=== PATIENT | male | born 1935 | race Caucasian/White ===

== ENCOUNTER 2019-04-09 20:16 | Inpatient (IN) ==
--- NOTE | 2019-04-09 21:03 | Emergency Department Note ---
Abdominal Pain HPI - General Chief Complaint: Abdominal Pain Stated Complaint: Right side abdominal pain Time Seen by Provider: 04/09/19 20:21 - History of Present Illness HPI Narrative: 83-year-old male patient presents emergency Department with chief complaint of worsening chest and abdominal pain 2.5 days. Patient tells the pain spontaneously developed in the right side of his chest and radiates down into his abdomen. He denies systemic fever, sweats, chills. He denies shortness of breath. He denies retrosternal chest pain or palpitations. He describes the pain to his abdomen as an achiness that travels from his back, around his right flank, and into his abdomen. He denies any nausea or vomiting. He admits to chronic diarrhea over the last 4 years. He admits to an extensive intra- abdominal surgical history with removal of a significant portion of his small bowel associated with diverticulitis. He and his both tell me that he spent over a month and a hospital recovering from various intra-abdominal infections and sequelae associated with the surgery. He denies generalized or focal weakness. Past history consists of the following: Hypertension, hyperlipidemia, iron deficiency, hypothyroidism. - Related Data Home Medications Medication Instructions Recorded Confirmed Aspirin [Adult Low Dose Aspirin EC] 81 mg PO HS 04/09/19 04/09/19 Atorvastatin [Lipitor] 10 mg PO DAILY 04/09/19 04/09/19 Folic Acid 0.8 mg PO HS 04/09/19 04/09/19 Irbesartan [Avapro] 300 mg PO DAILY 04/09/19 04/09/19 Iron 65 mg PO DAILY 04/09/19 04/09/19 Levothyroxine [Synthroid] 137 mcg PO DAILY 04/09/19 04/09/19 Magnesium Oxide [Magnesium] 500 mg PO HS 04/09/19 04/09/19 amLODIPine [Norvasc] 10 mg PO HS 04/09/19 04/09/19 traZODone HCL [Trazodone HCl] 100 mg PO HS 04/09/19 04/09/19 Allergies Allergy/AdvReac Type Severity Reaction Status Date / Time No Known Drug Allergies Allergy Verified 04/09/19 20:22 Review of Systems All systems ED: reviewed and negative except as stated. Abdominal Pain PMH - Social History Smoking status: Former smoker Physical Exam General appearance: alert, in no apparent distress Head: atraumatic, normocephalic Eye: Present: normal appearance, PERRL, EOMI. Absent: scleral icterus, conjunctival injection ENT: Present: normal oropharynx, mucous membranes moist Neck: Present: trachea midline. Absent: lymphadenopathy, thyromegaly Chest: Present: normal inspection, symmetric chest wall rise. Absent: tenderness, rash Respiratory: Present: normal lung sounds bilaterally. Absent: respiratory distr ess, wheezes, stridor, accessory muscle use, prolonged expiratory phase Cardiovascular: Present: regular rate, normal rhythm, other (auscultation demonstrates slightly irregular rhythm.). Absent: systolic murmur, diastolic murmur Abdominal: Present: soft, tenderness, hyperactive bowel sounds, scar (well- healed, midline surgical scar.). Absent: distention, guarding, rebound, rigidity, organomegaly, mass Abdominal tenderness: Present: RUQ, mild Extremities: Absent: pedal edema, pretibial edema, calf tenderness Back: Absent: CVA tenderness (R), CVA tenderness (L), spinous process tenderness Neurological: Present: alert, oriented X3 Psychiatric: Present: normal affect, normal mood Skin: Present: warm, dry Course Course Narrative: Patient is brought into the emergency department and a history and physical exam was performed. Saline lock was established and laboratory studies were drawn. Two-view chest x-ray was obtained. Abdominal/pelvic CT scan was obtained. Upon reevaluation patient is resting comfortably on the emergency room guarding. At shift change I gave report to my collaborating physician (Dr. Crow). He is taken over the patient's care and will follow him for the duration of his stay. All future treatment decisions and modalities be carried out by Dr. Crow. Vital Signs Temperature 98.1 F 04/09/19 20:17 Pulse Rate 60 04/09/19 20:17 Respiratory Rate 16 04/09/19 20:17 Blood Pressure 183/89 04/09/19 20:17 Pulse Oximetry (%) 97 04/09/19 20:17 Temperature 98.1 F 04/09/19 20:17 Pulse Rate 60 04/09/19 20:17 Respiratory Rate 16 04/09/19 20:17 Blood Pressure 183/89 04/09/19 20:17 Pulse Oximetry (%) 97 04/09/19 20:17 Abdominal Pain - Lab Data Result diagrams: 04/09/19 21:32 04/09/19 21:20 Lab Results 04/09/19 Range/Units 21:20 POC Hct 44.0 (41.0-55.0) % POC Sodium 138 (133-145) mmol/L POC Potassium 3.2 L (3.3-5.1) mmol/L POC Chloride 103 (96-108) mmol/L POC Total CO2 24 (22-30) mmol/L POC BUN 17 (8-23) mg/dl POC Creatinine 1.6 H (0.7-1.2) mg/dl POC Glucose 152 H (70-105) mg/dL POC WB Ioniz Calcium 1.19 (1.16-1.32) mmol/L Disposition Pt seen by RETIREMENT OFFICER/PA only: No (Tristin) Clinical Impression: Abdominal pain Qualifiers: Abdominal location: unspecified location Qualified Code(s): R10.9 - Unspecified abdominal pain Disposition: Still a Patient Condition: Fair Additional Instructions: At shift change report was given to my collaborating physician (Dr. Crow) who has assumed the patient's care. All future treatment decisions and modalities will be carried out by Dr. Crow. Referrals: Neal Diaz DO [Primary Care Provider] -
[2019-04-09 21:37] LABS: POC Blood Urea Nitrogen 17 mg/dl (8-23); POC CO2 24 mmol/L (22-30); POC Calcium, Ionized 1.19 mmol/L (1.16-1.32); POC Chloride 103 mmol/L (96-108); POC Creatinine 1.6 mg/dl (0.7-1.2); POC Glucose, Random 152 mg/dL (70-105); POC Potassium 3.2 mmol/L (3.3-5.1); POC Sodium 138 mmol/L (133-145)
[2019-04-09 22:24] LABS: ALT/SGPT 14 U/l (0-40); AST/SGOT 22 U/l (0-37); Albumin 4.6 gm/dL (3.2-5.2); Albumin/Globulin Ratio 1.4 (1.0-2.3); Alkaline Phosphatase 164 U/L (39-117); Bilirubin,Total 0.7 mg/dL (0.0-1.0); Blood Urea Nitrogen 14 mg/dl (8-23); Calcium 10.7 mg/dl (8.6-10.4); Carbon Dioxide 21 mmol/L (22-30); Chloride 100 mmol/L (96-108); Globulin 3.4 gm/dL (2.2-3.7); Glomerular Filtration Rate 40; Glucose 149 mg/dL (70-105)
[2019-04-09 22:46] LABS: Appearance,Urine CLEAR; Bacteria,Urine 0 /hpf (0); Bilirubin,Urine NEG (NEG); Color,Urine STRAW; Culture Indicated,Urine YES; Glucose,Urine (UA) NEGATIVE (NEG); Ketones,Urine NEG (NEG); Leukocyte Esterase,Urine 500 /uL (NEG); Mucus,Urine FEW /hpf (0); Nitrate,Urine NEG (NEG); Protein,Urine 30 mg/dL (NEG); Specific Gravity,Urine 1.008 (1.000-1.035); Urine Blood 0.03 mg/dL (<0.03); Urine RBC 3 /hpf (0-1); Urine Squamous Epithelial Cell 0 /hpf (0-4); Urine WBC 65 /hpf (0-4); Urobilinogen,Urine NEG (NEG)
[2019-04-09 22:46] LABS: Basophils # (Auto) 0 K/mcL (0.0-0.3); Basophils % (Auto) 0.2 % (0.0-2.0); Eosinophils # (Auto) 0.2 K/mcL (0.0-0.7); Eosinophils % (Auto) 1.9 % (0.0-7.0); Hematocrit 48.4 % (41.0-55.0); Hemoglobin 16.5 g/dL (13.5-16.5); Lymphocytes # (Auto) 0.7 K/mcL (1.5-4.8); Lymphocytes % (Auto) 5.4 % (15.5-49.0); Mean Cell Volume 93.2 fL (80.0-100.0); Mean Corpuscular HGB Conc 34.2 g/dL (31.0-36.0); Mean Platelet Volume 6.9 fL (7.4-10.4); Monocytes # (Auto) 1.1 K/mcL (0.1-0.9); Monocytes % (Auto) 8.5 % (1.0-12.0); Platelet Count 189 K/mcL (140-440); RBC 5.19 M/mcL (4.50-5.90); Red Cell Distribution Width 13.7 % (11.5-14.5); WBC 12.7 K/mcL (4.5-11.0)
[2019-04-09] MEDS ORDERED: NITROFURANTOIN SR 100 MG CAPSULE PO ONE (23:03)
--- NOTE | 2019-04-09 23:04 | Emergency Department Note ---
Abdominal Pain HPI - General Chief Complaint: Abdominal Pain Stated Complaint: Right side abdominal pain Time Seen by Provider: 04/09/19 20:21 Source: patient Mode of arrival: ambulatory Limitations: no limitations - History of Present Illness HPI Narrative: 83-year-old male with belly pain checked out to me by Jose Manuel Franks PA-C. Patient was initially seen by Jose Manuel Franks PA-C. We discussed his work-up and this was initiated. I reviewed and agree with Jose Manuel' evaluation management documentation - Related Data Home Medications Medication Instructions Recorded Confirmed Aspirin [Adult Low Dose Aspirin EC] 81 mg PO HS 04/09/19 04/10/19 Atorvastatin [Lipitor] 10 mg PO DAILY 04/09/19 04/10/19 Folic Acid 0.8 mg PO HS 04/09/19 04/10/19 Irbesartan [Avapro] 300 mg PO DAILY 04/09/19 04/10/19 Iron 65 mg PO DAILY 04/09/19 04/10/19 Levothyroxine [Synthroid] 137 mcg PO DAILY 04/09/19 04/10/19 Magnesium Oxide [Magnesium] 500 mg PO HS 04/09/19 04/10/19 amLODIPine [Norvasc] 10 mg PO HS 04/09/19 04/10/19 traZODone HCL [Trazodone HCl] 100 mg PO HS 04/09/19 04/10/19 Allergies Allergy/AdvReac Type Severity Reaction Status Date / Time No Known Drug Allergies Allergy Verified 04/09/19 20:22 Abdominal Pain PMH - Social History Smoking status: Former smoker Physical Exam General appearance: alert, in no apparent distress Course Vital Signs Temperature 98.1 F 04/09/19 20:17 Pulse Rate 60 04/09/19 20:17 Respiratory Rate 16 04/09/19 20:17 Blood Pressure 183/89 04/09/19 20:17 Pulse Oximetry (%) 97 04/09/19 20:17 Temperature 98.0 F 04/10/19 04:23 Pulse Rate 101 H 04/10/19 04:23 Respiratory Rate 12 04/10/19 04:23 Blood Pressure 173/94 04/10/19 04:23 Pulse Oximetry (%) 96 04/10/19 04:23 Abdominal Pain - Lab Data Lab results reviewed: Yes I reviewed the patient's lab results. Result diagrams: 04/09/19 22:21 04/09/19 21:20 Lab Results 04/09/19 04/09/19 04/09/19 Range/Units 21:20 21:32 21:52 WBC TNP RBC TNP Hgb TNP Hct TNP POC Hct 44.0 (41.0-55.0) % MCV TNP MCH TNP MCHC TNP RDW TNP Plt Count TNP MPV TNP Gran % (38.0-78.0) % Lymph % (Auto) (15.5-49.0) % [place] % (Auto) (1.0-12.0) % Eos % (Auto) (0.0-7.0) % Baso % (Auto) (0.0-2.0) % Gran # (1.8-8.0) K/mcL Lymph # (Auto) (1.5-4.8) K/mcL [place] # (Auto) (0.1-0.9) K/mcL Eos # (Auto) (0.0-0.7) K/mcL Baso # (Auto) (0.0-0.3) K/mcL POC Sodium 138 (133-145) mmol/L Sodium 137 (133-145) mmol/L POC Potassium 3.2 L (3.3-5.1) mmol/L Potassium 3.3 (3.3-5.1) mmol/L POC Chloride 103 (96-108) mmol/L Chloride 100 (96-108) mmol/L Carbon Dioxide 21 L (22-30) mmol/L POC Total CO2 24 (22-30) mmol/L Anion Gap 16.0 (8-16) POC BUN 17 (8-23) mg/dl BUN 14 (8-23) mg/dl Creatinine 1.6 H (0.7-1.2) mg/dl POC Creatinine 1.6 H (0.7-1.2) mg/dl GFR Calculation 40 Glucose 149 H (70-105) mg/dL POC Glucose 152 H (70-105) mg/dL Calcium 10.7 H (8.6-10.4) mg/dl POC WB Ioniz Calcium 1.19 (1.16-1.32) mmol/L Total Bilirubin 0.7 (0.0-1.0) mg/dL AST 22 (0-37) U/l ALT 14 (0-40) U/l Alkaline Phosphatase 164 H (39-117) U/L Total Protein 8.0 (5.9-8.4) gm/dL Albumin 4.6 (3.2-5.2) gm/dL Globulin 3.4 (2.2-3.7) gm/dL Albumin/Globulin Ratio 1.4 (1.0-2.3) Lipase 25 (7-60) U/L Urine Color Straw Urine Appearance Clear Urine pH 7.0 (5.0-9.0) Ur Specific [place] 1.008 (1.000-1.035) Urine Protein 30 A (NEG) mg/dL Urine Glucose (UA) Negative (NEG) mg/dL Urine Ketones Neg (NEG) mg/dL Urine Occult Blood 0.03 A (<0.03) mg/dL Urine Nitrate Neg (NEG) Urine Bilirubin Neg (NEG) mg/dL Urine Urobilinogen Neg (NEG) mg/dL Ur Leukocyte Esterase 500 A (NEG) /uL Urine RBC 3 H (0-1) /hpf Urine WBC 65 H (0-4) /hpf Ur Squamous Epith Cells 0 (0-4) /hpf Urine Bacteria 0 (0) /hpf Urine Mucus Few (0) /hpf Ur Culture Indicated? Yes 04/09/19 Range/Units 22:21 WBC 12.7 H RBC 5.19 Hgb 16.5 Hct 48.4 POC Hct (41.0-55.0) % MCV 93.2 MCH 31.8 MCHC 34.2 RDW 13.7 Plt Count 189 MPV 6.9 L Gran % 84.0 H (38.0-78.0) % Lymph % (Auto) 5.4 L (15.5-49.0) % [place] % (Auto) 8.5 (1.0-12.0) % Eos % (Auto) 1.9 (0.0-7.0) % Baso % (Auto) 0.2 (0.0-2.0) % Gran # 10.7 H (1.8-8.0) K/mcL Lymph # (Auto) 0.7 L (1.5-4.8) K/mcL [place] # (Auto) 1.1 H (0.1-0.9) K/mcL Eos # (Auto) 0.2 (0.0-0.7) K/mcL Baso # (Auto) 0 (0.0-0.3) K/mcL POC Sodium (133-145) mmol/L Sodium (133-145) mmol/L POC Potassium (3.3-5.1) mmol/L Potassium (3.3-5.1) mmol/L POC Chloride (96-108) mmol/L Chloride (96-108) mmol/L Carbon Dioxide (22-30) mmol/L POC Total CO2 (22-30) mmol/L Anion Gap (8-16) POC BUN (8-23) mg/dl BUN (8-23) mg/dl Creatinine (0.7-1.2) mg/dl POC Creatinine (0.7-1.2) mg/dl GFR Calculation Glucose (70-105) mg/dL POC Glucose (70-105) mg/dL Calcium (8.6-10.4) mg/dl POC WB Ioniz Calcium (1.16-1.32) mmol/L Total Bilirubin (0.0-1.0) mg/dL AST (0-37) U/l ALT (0-40) U/l Alkaline Phosphatase (39-117) U/L Total Protein (5.9-8.4) gm/dL Albumin (3.2-5.2) gm/dL Globulin (2.2-3.7) gm/dL Albumin/Globulin Ratio (1.0-2.3) Lipase (7-60) U/L Urine Color Urine Appearance Urine pH (5.0-9.0) Ur Specific [place] (1.000-1.035) Urine Protein (NEG) mg/dL Urine Glucose (UA) (NEG) mg/dL Urine Ketones (NEG) mg/dL Urine Occult Blood (<0.03) mg/dL Urine Nitrate (NEG) Urine Bilirubin (NEG) mg/dL Urine Urobilinogen (NEG) mg/dL Ur Leukocyte Esterase (NEG) /uL Urine RBC (0-1) /hpf Urine WBC (0-4) /hpf Ur Squamous Epith Cells (0-4) /hpf Urine Bacteria (0) /hpf Urine Mucus (0) /hpf Ur Culture Indicated? - Radiology Data Radiology results reviewed: Yes I reviewed the patient's radiology results. Dr. Shields's read on CT scan of the chest abdomen and pelvis without contrast, his creatinine was 1.6: MPRESSION: 1. Cluster of 4-5 calcifications in the region of the distal left ureter spanning 8 by 18 mm. Absence of left hydroureter/hydronephrosis suggests these are merely a collection of phleboliths but there are anatomically difficult to localize on this noncontrast exam. If patient can tolerate iodinated contrast, suggest contrast injection followed by by three standard supine abdomen plain films at one minute, 10 minutes and one hour to determine whether contrast clears through the ureter in this region. (Old standard IVP). 2. Marked prostate enlargement. Mild wall thickening the urinary bladder suggests chronic bladder outlet narrowing. There is an 8 mm stone within the urinary bladder. 3. Marked ileus. 4. 12 mm simple cyst mid left kidney. 5. Bronchiectasis and subsegmental segmental bronchi of both lower lobes which may predispose to future infection. There is scattered scarring or atelectasis in both lower lobes but no active infiltrate. 6. Diminutive thyroid - please correlate with TSH Disposition Pt seen by DIRECTOR OF AGRICULTURE/PA only: No Clinical Impression: Partial small bowel obstruction, Hypercalcemia UTI (urinary tract infection) Qualifiers: Urinary tract infection type: acute cystitis Hematuria presence: with hematuria Qualified Code(s): N30.01 - Acute cystitis with hematuria Summary: When the patient was checked out to me laboratory and CT scan were pending. He is a somewhat difficult phlebotomy and IV challenge but they did manage to get laboratory and start an IV. Laboratory shows a urinary tract infection, and mild hypercalcemia. Is also compatible with partial small bowel obstruction-which is the concern on CT scan. That is ileus versus partial small bowel obstruction. I discussed these things with Dr. Ravi Medeiros, general surgeon, who agreed to accept the patient for further evaluation and management in the hospital. The patient was otherwise stable with mildly elevated blood pressure. He has me to order a small bowel follow-through for the morning which is done. I wrote transition orders Disposition: Xfer As Inpt ([facility]) Condition: Fair
[2019-04-09] MEDS ORDERED: ONDANSETRON 4 MG/2 ML VIAL IV ONE (23:15)
[2019-04-09] MEDS ORDERED: cefTRIAXone 1 GM VIAL IV SCH (23:30)
[2019-04-09] MEDS: HYDROmorphone 2 MG/ML VIAL IV PRN (23:36)
[2019-04-10] MEDS: 0.9 % SODIUM CHLORIDE 1,000 ML IV SCH ×3 (00:36→22:41)
[2019-04-10] MEDS: HYDROmorphone 2 MG/ML VIAL IV PRN ×6 (00:49→23:48)
--- NOTE | 2019-04-10 04:48 | Cat Scan Report ---
CLINICAL INFORMATION: Right-sided chest and abdomen pain for three days. COMPARISON: None. TECHNIQUE: 0.625 mm helical slices were obtained from the lung apices through the subtrochanteric regions of the femurs. Following reconstruction, 2.5 mm sagittal, coronal and axial reformatted images were processed and reviewed at multiple windows and levels. 7 mm MIP reconstructions were obtained through the lungs to optimize nodule detection.The exam was performed using radiation dose optimization techniques including, but not limited to, automated exposure control, adjustment of the mA and/or kV according to patient size and use of iterative reconstruction technique. FINDINGS: Mediastinal windows show mild cardiomegaly with very heavy calcific plaque in the left anterior descending and circumflex coronary arteries. The noncontrast thoracic aorta and pulmonary arteries are normal in contour and caliber. A few calcified lymph nodes in the lower mediastinum is compatible with old granulomatous disease. The esophagus is grossly normal. Thyroid is either quite diminutive or surgically absent. Pulmonary parenchymal windows show scattered scarring and/or atelectasis in both lower lobes. Mild bronchiectasis in the segmental and subsegmental lower lobe bronchi may predispose to future infection. There are no bienvenido infiltrates or effusions. Abdominal images show the noncontrasted liver to be unremarkable. There is a phrygian cap in the gallbladder. Gallbladder is otherwise normal. The common bile duct normal caliber - 6 mm. A 12 mm cyst projects from the lateral cortex of the mid left kidney. 2 mm punctate stone seen within the mid calyx the right kidney. In the distal right ureter region, there is an 18 mm cluster of 4-5 calcifications. It cannot be ascertained whether this is in the ureter itself representing stones or outside the ureter representing phleboliths. There is no evidence of hydronephrosis. The noncontrasted spleen, pancreas and aorta are unremarkable. Pelvic images show moderate prostate enlargement: 7 x 6 x 8 cm. There is mild wall thickening of the urinary bladder compatible with chronic bladder outlet narrowing. 8 mm stone within the urinary bladder. There is no free air, free fluid or adenopathy. The hepatic flexure and a few loops of small bowel are interposed between the anterior surface of the liver and the abdominal wall - a normal variant. The stomach, small and large bowel are symmetrically dilated compatible with moderate ileus. Appendix not identified but no inflammation seen in the appendix region. Bone windows show no significant osseous abnormalities. IMPRESSION: 1. Cluster of 4-5 calcifications in the region of the distal left ureter spanning 8 by 18 mm. Absence of left hydroureter/hydronephrosis suggests these are merely a collection of phleboliths but there are anatomically difficult to localize on this noncontrast exam. If patient can tolerate iodinated contrast, suggest contrast injection followed by by three standard supine abdomen plain films at one minute, 10 minutes and one hour to determine whether contrast clears through the ureter in this region. (Old standard IVP). 2. Marked prostate enlargement. Mild wall thickening the urinary bladder suggests chronic bladder outlet narrowing. There is an 8 mm stone within the urinary bladder. 3. Marked ileus. 4. 12 mm simple cyst mid left kidney. 5. Bronchiectasis and subsegmental segmental bronchi of both lower lobes which may predispose to future infection. There is scattered scarring or atelectasis in both lower lobes but no active infiltrate. 6. Diminutive thyroid - please correlate with TSH Interpreted and Authenticated by: Yony Shields 04/10/19
[2019-04-10] MEDS ORDERED: ONDANSETRON 4 MG/2 ML VIAL IV PRN (17:50)
[2019-04-10] MEDS ORDERED: PROMETHAZINE 25 MG/ML VIAL IV PRN (17:50)
--- NOTE | 2019-04-10 18:00 | General Surg History&Physical ---
History of Present Illness Patient information: Note initiated : 04/10/19 at 5:59 pm Service Date, if different from initiated Date: [] Patient: Jose Mckeon a 83 y/o M admitted on 04/09/19 for Right side abdominal pain. Chief Complaint: [] HPI: Mr. Mckeon is a 83 year old M admitted with abdominal pain. The patient states that he developed abdominal pain in the midabdomen on Sunday. It became progressively worse and he was finally seen in the emergency room late last evening. He did not have nausea or vomiting. He has a history of having had constant diarrhea for many years and usually has bowel movements once or twice daily. He has not had nausea, vomiting and he denies weight loss. He states that he had colonoscopy in 2009. He does not remember the results, but was not scheduled for follow-up. He had small bowel perforation in 2010 and required small bowel resection. He did not have any other symptoms since that surgery. Past History Past surgical history: Small bowel resection 2010. History of cardiac stent Past family history: . Father age 47 due to acute myocardial infarction . Mother in her 70s due to breast cancer metastatic to the brain. He is an only child Past social history: No tobacco use for 30 years. No alcohol use for over 30 years. No drug use. Recent transferred here from [place], [place] Medications and Allergies Home Medications Medication Instructions Recorded Confirmed Type Aspirin [Adult Low Dose Aspirin EC] 81 mg PO HS 04/09/19 04/10/19 History Atorvastatin [Lipitor] 10 mg PO DAILY 04/09/19 04/10/19 History Folic Acid 0.8 mg PO HS 04/09/19 04/10/19 History Irbesartan [Avapro] 300 mg PO DAILY 04/09/19 04/10/19 History Iron 65 mg PO DAILY 04/09/19 04/10/19 History Levothyroxine [Synthroid] 137 mcg PO DAILY 04/09/19 04/10/19 History Magnesium Oxide [Magnesium] 500 mg PO HS 04/09/19 04/10/19 History amLODIPine [Norvasc] 10 mg PO HS 04/09/19 04/10/19 History traZODone HCL [Trazodone HCl] 100 mg PO HS 04/09/19 04/10/19 History Allergies Allergy/AdvReac Type Severity Reaction Status Date / Time No Known Drug Allergies Allergy Verified 04/09/19 20:22 Exam Temp Pulse Resp BP Pulse Ox 97.7 F 101 H 18 160/89 91 04/10/19 12:00 04/10/19 04:23 04/10/19 12:00 04/10/19 12:00 04/10/19 12:00 - General physical appearance well developed, well nourished, no distress, no pain, cachectic, chronically ill - Eyes PERRL, normal ocular movement - ENT normal pinna, normal nares, normal mucosa, no hearing loss, no congestion - Head Head exam IM: Present: atraumatic, normocephalic - Neck no masses, no bruits, trachea midline, no lymphadenopathy, no venous distension - Cardiovascular Cardiovascular exam IM: Present: normal rate and rhythm, RRR, +S1, +S2. Absent: JVD, tachycardia - Respiratory normal expansion, normal respiratory effort, clear to percussion, clear to auscultation - Abdomen Abdomen: Present: soft, non tender (nontender abdomen; nondistended; active bowel sounds; no palpable mass), bowel sounds Hernia: Present: none - Genitourinary Present: normal penis with no external lesions - Integumentary Present: no rash, no growths, no abnormal pigmentation - Neurologic Present: normal coordination, normal sensation - Musculoskeletal Present: normal gait, normal posture - Psychiatric Present: oriented to time, oriented to person, oriented to place, speech is normal, memory intact Assessment and Plan (1) UTI (urinary tract infection) Status: Acute Qualifiers: Urinary tract infection type: acute cystitis Hematuria presence: with hematuria Qualified Code(s): N30.01 - Acute cystitis with hematuria (2) Colonic obstruction Status: Resolved (3) Coronary artery disease Status: Acute
[2019-04-10] MEDS: cefTRIAXone 1 GM VIAL IV SCH (18:16)
[2019-04-10] MEDS: METOCLOPRAMIDE 10 MG/2 ML VIAL IV SCH ×2 (18:16→23:49)
[2019-04-10] MEDS ORDERED: POTASSIUM PHOSPHATE 66 MEQ/15 ML VIAL IV ONE (19:57)
[2019-04-10] MEDS: POTASSIUM PHOSPHATE 40 MEQ in DEXTROSE 5% IN WATER 500 ML IV SCH ×2 (20:18→23:42)
[2019-04-10] MEDS: LORazepam 2 MG/ML VIAL IV PRN (23:49)
[2019-04-11] MEDS: HYDROmorphone 2 MG/ML VIAL IV PRN ×5 (05:35→21:28)
--- NOTE | 2019-04-11 05:35 | XRay Report ---
CLINICAL INFORMATION: partial obstruction TECHNIQUE: Following electric tool repairer film, water-soluble contrast was administered and serial imaging was obtained over the next 10 hours COMPARISON: None. FINDINGS: Only the stomach was opacified at the two hour and 30 minute film. At seven hours, the stomach, duodenum and most of the jejunum were opacified. On that film, the stomach and small bowel were only equivocally dilated. Film at 10 hours shows complete opacification of the small bowel with contrast extending into the right colon to the hepatic flexure. Transverse descending and rectosigmoid segments are not opacified IMPRESSION: Nonspecific exam. Extraordinarily slow GI transit time with right colon opacification at 10 hours. The patient either has a severe ileus or, less likely, a colonic obstruction distal to the hepatic flexure. On CT, there is moderate colonic dilatation to the level of the splenic flexure. Consider Hypaque enema to evaluate for colonic obstruction at the splenic flexure Interpreted and Authenticated by: Yony Shields 04/11/19
[2019-04-11] MEDS: METOCLOPRAMIDE 10 MG/2 ML VIAL IV SCH ×4 (06:05→23:33)
[2019-04-11 06:25] LABS: Basophils # (Auto) 0 K/mcL (0.0-0.3); Basophils % (Auto) 0.2 % (0.0-2.0); Eosinophils # (Auto) 0 K/mcL (0.0-0.7); Eosinophils % (Auto) 0.2 % (0.0-7.0); Granulocytes % (Auto) 86.7 % (38.0-78.0); Hematocrit 49.3 % (41.0-55.0); Hemoglobin 13.9 g/dL (13.5-16.5); Lymphocytes # (Auto) 0.7 K/mcL (1.5-4.8); Lymphocytes % (Auto) 4.6 % (15.5-49.0); Mean Cell Volume 94.2 fL (80.0-100.0); Mean Corpuscular HGB Conc 28.3 g/dL (31.0-36.0); Mean Platelet Volume 7.8 fL (7.4-10.4); Monocytes # (Auto) 1.2 K/mcL (0.1-0.9); Monocytes % (Auto) 8.3 % (1.0-12.0); Platelet Count 171 K/mcL (140-440); RBC 5.23 M/mcL (4.50-5.90); Red Cell Distribution Width 13.9 % (11.5-14.5); WBC 14.8 K/mcL (4.5-11.0)
[2019-04-11] MEDS: 0.9 % SODIUM CHLORIDE 1,000 ML IV SCH ×4 (06:53→19:56)
[2019-04-11 06:55] LABS: ALT/SGPT 10 U/l (0-40); AST/SGOT 15 U/l (0-37); Albumin 3.7 gm/dL (3.2-5.2); Alkaline Phosphatase 113 U/L (39-117); Bilirubin,Direct < 0.2 mg/dL (0.0-0.3); Bilirubin,Total 0.6 mg/dL (0.0-1.0); Blood Urea Nitrogen 20 mg/dl (8-23); Calcium 9.6 mg/dl (8.6-10.4); Carbon Dioxide 20 mmol/L (22-30); Chloride 108 mmol/L (96-108); Globulin 3.6 gm/dL (2.2-3.7); Glomerular Filtration Rate 37; Glucose 95 mg/dL (70-105); Lactate Dehydrogenase 321 U/L (94-250); Phosphorous 4.5 mg/dL (2.7-4.5); Triglycerides 67 mg/dl (<150); Uric Acid 3.6 mg/dL (2.5-8.0)
--- NOTE | 2019-04-11 08:35 | XRay Report ---
CLINICAL INFORMATION: FOLLOW -UP OF SMALL BOWEL OBSTRUCTION COMPARISON: None. FINDINGS: Enteric contrast, from the small bowel bowel follow-through one day prior, is now entirely within the colon - including the rectum. The colon is mildly dilated, but there is no evidence of colonic obstruction. Stomach and small bowel remain moderately dilated with. Right diaphragm is moderately elevated, but unchanged. No free air or soft tissue mass IMPRESSION: No evidence of colonic obstruction. Severe ileus Interpreted and Authenticated by: Yony Shields 04/11/19
[2019-04-11] MEDS: cefTRIAXone 1 GM VIAL IV SCH (08:44)
--- NOTE | 2019-04-11 13:04 | General Surgery Progress Note ---
Subjective Patient reports: feels better, still having pain, flatus, bowel movement, afebrile Narrative: Note initiated : 04/11/19 at 1:02 pm Service Date, if different from initiated Date: [] Patient: Jose Mckeon 83 y/o M admitted on 04/09/19 for Right side abdominal pain. Chief Complaint: [patient is stable and has less nausea. He had a small bowel movement and passed a small amount of flatus. The small bowel follow-through showed dilated loops of small bowel and colon extending all the way to the rectum with significant dilation of the right colon and transverse colon. This is suggestive of primary intestinal pseudoobstruction. The contrast from the small bowel follow-through extends to the rectum. White blood count 14.8, hemoglobin 13.9, hematocrit 29.3, lactic acid 1.3, creatinine 1.7.] Objective Temp Pulse Resp BP Pulse Ox 98.5 F 89 18 147/90 90 04/11/19 12:00 04/11/19 03:15 04/11/19 12:00 04/11/19 12:00 04/11/19 12:00 - Additional Data Intake & Output - Last 24 hours: Intake & Output 04/09/19 04/10/19 04/11/19 04/12/19 05:59 05:59 05:59 05:59 Intake Total 0 2180 1000 Output Total 450 675 Balance -450 1505 1000 Weight 141 lb 8 oz 142 lb 8 oz - General physical appearance well developed, well nourished, no distress - Eyes PERRL, normal ocular movement - ENT normal pinna, normal nares, normal mucosa, no hearing loss, no congestion - Neck no masses, no bruits, trachea midline, no lymphadenopathy, no venous distension - Respiratory normal expansion, normal respiratory effort, clear to auscultation - Cardiovascular Cardiovascular exam: Present: normal rate and rhythm, RRR, +S1, +S2. Absent: JVD, tachycardia - Abdomen soft, non tender, bowel sounds ( hyperactive bowel sounds without tenderness) - Integumentary no rash, no growths, no abnormal pigmentation - Neurologic normal coordination, normal sensation - Musculoskeletal normal gait, normal posture - Psychiatric oriented to time, oriented to person, oriented to place, speech is normal, memory intact - Labs 04/11/19 04:46 04/11/19 04:45 Diabetes panel 04/11/19 Range/Units 04:45 Sodium 144 (133-145) mmol/L Potassium 4.5 (3.3-5.1) mmol/L Chloride 108 (96-108) mmol/L Carbon Dioxide 20 L (22-30) mmol/L BUN 20 (8-23) mg/dl Creatinine 1.7 H (0.7-1.2) mg/dl Glucose 95 (70-105) mg/dL Calcium 9.6 (8.6-10.4) mg/dl AST 15 (0-37) U/l ALT 10 (0-40) U/l Alkaline Phosphatase 113 (39-117) U/L Total Protein 7.3 (5.9-8.4) gm/dL Albumin 3.7 (3.2-5.2) gm/dL Triglycerides 67 (<150) mg/dl Calcium panel 04/11/19 Range/Units 04:45 Calcium 9.6 (8.6-10.4) mg/dl Phosphorus 4.5 (2.7-4.5) mg/dL Albumin 3.7 (3.2-5.2) gm/dL Pituitary panel 04/11/19 Range/Units 04:45 Sodium 144 (133-145) mmol/L Potassium 4.5 (3.3-5.1) mmol/L Chloride 108 (96-108) mmol/L Carbon Dioxide 20 L (22-30) mmol/L BUN 20 (8-23) mg/dl Creatinine 1.7 H (0.7-1.2) mg/dl Glucose 95 (70-105) mg/dL Calcium 9.6 (8.6-10.4) mg/dl Adrenal panel 04/11/19 Range/Units 04:45 Sodium 144 (133-145) mmol/L Potassium 4.5 (3.3-5.1) mmol/L Chloride 108 (96-108) mmol/L Carbon Dioxide 20 L (22-30) mmol/L BUN 20 (8-23) mg/dl Creatinine 1.7 H (0.7-1.2) mg/dl Glucose 95 (70-105) mg/dL Calcium 9.6 (8.6-10.4) mg/dl Total Bilirubin 0.6 (0.0-1.0) mg/dL AST 15 (0-37) U/l ALT 10 (0-40) U/l Alkaline Phosphatase 113 (39-117) U/L Total Protein 7.3 (5.9-8.4) gm/dL Albumin 3.7 (3.2-5.2) gm/dL Assessment and Plan (1) Pseudoobstruction of colon Status: Acute Assessment and plan: Started on REGONOL 5 mg subcutaneous twice a day Abdominal series in the morning. Trial of clear liquids Current Visit: Yes (2) UTI (urinary tract infection) Status: Acute Assessment and plan: Continue antibiotics. Repeat urinalysis Current Visit: Yes (3) Colonic obstruction Status: Resolved Current Visit: Yes - Time Spent With Patient Total time spent is greater than 50% in coordination of care (as documented) at patient's floor/unit and/or counseling patient:
[2019-04-11] MEDS: PYRIDOSTIGMINE BROMIDE 5 MG/ML IM SCH ×2 (14:14→21:22)
[2019-04-11 18:23] LABS: Appearance,Urine CLEAR; Bacteria,Urine 0 /hpf (0); Bilirubin,Urine NEG (NEG); Color,Urine YELLOW; Culture Indicated,Urine NO; Glucose,Urine (UA) NEGATIVE (NEG); Ketones,Urine NEG (NEG); Leukocyte Esterase,Urine 25 /uL (NEG); Mucus,Urine FEW /hpf (0); Nitrate,Urine NEG (NEG); Protein,Urine 100 mg/dL (NEG); Specific Gravity,Urine 1.013 (1.000-1.035); Urine Blood 0.03 mg/dL (<0.03); Urine Hyaline Cast 11 /lpf (0-2); Urine RBC 2 /hpf (0-1); Urine Squamous Epithelial Cell 1 /hpf (0-4); Urine WBC 6 /hpf (0-4); Urobilinogen,Urine NEG (NEG)
[2019-04-11] MEDS: amLODIPine 10 MG TABLET PO SCH (21:21)
[2019-04-11] MEDS: LORazepam 2 MG/ML VIAL IV PRN (23:33)
[2019-04-12] MEDS: 0.9 % SODIUM CHLORIDE 1,000 ML IV SCH ×4 (01:40→16:36)
[2019-04-12] MEDS: METOCLOPRAMIDE 10 MG/2 ML VIAL IV SCH ×4 (05:47→23:20)
[2019-04-12 05:57] LABS: Basophils # (Auto) 0 K/mcL (0.0-0.3); Basophils % (Auto) 0.2 % (0.0-2.0); Eosinophils # (Auto) 0 K/mcL (0.0-0.7); Eosinophils % (Auto) 0.1 % (0.0-7.0); Granulocytes % (Auto) 89.1 % (38.0-78.0); Hematocrit 39.4 % (41.0-55.0); Hemoglobin 13.1 g/dL (13.5-16.5); Lymphocytes # (Auto) 0.4 K/mcL (1.5-4.8); Lymphocytes % (Auto) 3.3 % (15.5-49.0); Mean Cell Volume 96.1 fL (80.0-100.0); Mean Corpuscular HGB Conc 33.4 g/dL (31.0-36.0); Mean Platelet Volume 7.3 fL (7.4-10.4); Monocytes % (Auto) 7.3 % (1.0-12.0); Platelet Count 148 K/mcL (140-440); Red Cell Distribution Width 14.3 % (11.5-14.5); WBC 13.3 K/mcL (4.5-11.0)
[2019-04-12 06:25] LABS: ALT/SGPT 8 U/l (0-40); AST/SGOT 13 U/l (0-37); Albumin 2.7 gm/dL (3.2-5.2); Albumin/Globulin Ratio 0.9 (1.0-2.3); Alkaline Phosphatase 87 U/L (39-117); Bilirubin,Direct < 0.2 mg/dL (0.0-0.3); Bilirubin,Total 0.5 mg/dL (0.0-1.0); Blood Urea Nitrogen 23 mg/dl (8-23); Calcium 9.2 mg/dl (8.6-10.4); Carbon Dioxide 19 mmol/L (22-30); Chloride 113 mmol/L (96-108); Glomerular Filtration Rate 43; Glucose 108 mg/dL (70-105); Lactate Dehydrogenase 258 U/L (94-250); Triglycerides 58 mg/dl (<150); Uric Acid 3.8 mg/dL (2.5-8.0)
[2019-04-12] MEDS: PYRIDOSTIGMINE BROMIDE 5 MG/ML IM SCH ×2 (08:52→20:33)
[2019-04-12] MEDS: cefTRIAXone 1 GM VIAL IV SCH (08:52)
--- NOTE | 2019-04-12 09:42 | XRay Report ---
CLINICAL INFORMATION: FOR F/U OF ILEUS COMPARISON: 04/11/2019 FINDINGS: There is moderate dilatation of the transverse colon - particularly the hepatic flexure. The remainder of the colon and small bowel are normal caliber. Moderate air seen within the rectum. No free air or soft tissue mass IMPRESSION: Moderate ileus - improved Interpreted and Authenticated by: Yony Shields 04/12/19
[2019-04-12] MEDS ORDERED: oxyCODONE HCL 5 MG TABLET PO PRN (10:23)
--- NOTE | 2019-04-12 10:28 | General Surgery Progress Note ---
Subjective Patient reports: feels better, pain is less, tolerating liquids well, flatus, bowel movement, afebrile Narrative: Note initiated : 04/12/19 at 10:27 am Service Date, if different from initiated Date: [] Patient: Jose Mckeon 83 y/o M admitted on 04/09/19 for Right side abdominal pain. Chief Complaint: [Patient is feeling better. He has much less abdominal pain. He has had multiple bowel movements and passage of flatus. He denies nausea and is tolerating liquids. White blood count 13.3, hemoglobin 13.1, hematocrit 39.4, BUN 23, creatinine 1.5. Other labs are normal. Abdominal x-rays reveal decrease in distention of small bowel and colon with decompression of the colon distal to the splenic flexure down to the rectum.] Objective Temp Pulse Resp BP Pulse Ox 98.0 F 101 H 16 150/88 90 04/12/19 08:00 04/12/19 08:00 04/12/19 08:00 04/12/19 08:00 04/12/19 08:00 - Additional Data Intake & Output - Last 24 hours: Intake & Output 04/10/19 04/11/19 04/12/19 04/13/19 05:59 05:59 05:59 05:59 Intake Total 0 2180 3660 480 Output Total 450 675 500 Balance -450 1505 3160 480 Weight 141 lb 8 oz 142 lb 8 oz 142 lb 9.6 oz - General physical appearance cachectic, chronically ill - Eyes PERRL, normal ocular movement - ENT normal pinna, normal nares, normal mucosa, no hearing loss, no congestion - Neck no masses, no bruits, trachea midline, no lymphadenopathy, no venous distension - Respiratory normal expansion, normal respiratory effort, clear to auscultation - Cardiovascular Cardiovascular exam: Present: normal rate and rhythm, RRR, +S1, +S2. Absent: JVD, tachycardia - Abdomen soft, non tender - Integumentary no rash, no growths, no abnormal pigmentation - Neurologic normal coordination - Musculoskeletal normal gait, normal posture - Psychiatric oriented to time, oriented to person, oriented to place, speech is normal, memory intact - Labs 04/12/19 04:46 04/12/19 04:46 Diabetes panel 04/12/19 Range/Units 04:46 Sodium 142 (133-145) mmol/L Potassium 3.6 (3.3-5.1) mmol/L Chloride 113 H (96-108) mmol/L Carbon Dioxide 19 L (22-30) mmol/L BUN 23 (8-23) mg/dl Creatinine 1.5 H (0.7-1.2) mg/dl Glucose 108 H (70-105) mg/dL Calcium 9.2 (8.6-10.4) mg/dl AST 13 (0-37) U/l ALT 8 (0-40) U/l Alkaline Phosphatase 87 (39-117) U/L Total Protein 5.7 L (5.9-8.4) gm/dL Albumin 2.7 L (3.2-5.2) gm/dL Triglycerides 58 (<150) mg/dl Calcium panel 04/12/19 Range/Units 04:46 Calcium 9.2 (8.6-10.4) mg/dl Phosphorus 3.0 (2.7-4.5) mg/dL Albumin 2.7 L (3.2-5.2) gm/dL Pituitary panel 04/12/19 Range/Units 04:46 Sodium 142 (133-145) mmol/L Potassium 3.6 (3.3-5.1) mmol/L Chloride 113 H (96-108) mmol/L Carbon Dioxide 19 L (22-30) mmol/L BUN 23 (8-23) mg/dl Creatinine 1.5 H (0.7-1.2) mg/dl Glucose 108 H (70-105) mg/dL Calcium 9.2 (8.6-10.4) mg/dl Adrenal panel 04/12/19 Range/Units 04:46 Sodium 142 (133-145) mmol/L Potassium 3.6 (3.3-5.1) mmol/L Chloride 113 H (96-108) mmol/L Carbon Dioxide 19 L (22-30) mmol/L BUN 23 (8-23) mg/dl Creatinine 1.5 H (0.7-1.2) mg/dl Glucose 108 H (70-105) mg/dL Calcium 9.2 (8.6-10.4) mg/dl Total Bilirubin 0.5 (0.0-1.0) mg/dL AST 13 (0-37) U/l ALT 8 (0-40) U/l Alkaline Phosphatase 87 (39-117) U/L Total Protein 5.7 L (5.9-8.4) gm/dL Albumin 2.7 L (3.2-5.2) gm/dL Assessment and Plan (1) Pseudoobstruction of colon Status: Acute Assessment and plan: Started on REGONOL 5 mg subcutaneous twice a day Abdominal series in the morning. MiraLAX 17 g by mouth every 4 hours 6 doses Current Visit: Yes (2) UTI (urinary tract infection) Status: Acute Assessment and plan: Continue antibiotics. Repeat urinalysis is improved Current Visit: Yes - Time Spent With Patient Total time spent is greater than 50% in coordination of care (as documented) at patient's floor/unit and/or counseling patient:
[2019-04-12] MEDS ORDERED: POLYETHYLENE GLYCOL 3350 17 GM PACKET PO SCH (10:30)
[2019-04-12] MEDS: POLYETHYLENE GLYCOL 3350 17 GM PACKET PO SCH ×4 (11:36→23:23)
[2019-04-12] MEDS: MAGNESIUM OXIDE 400 MG TABLET PO SCH (20:34)
[2019-04-12] MEDS: amLODIPine 10 MG TABLET PO SCH (20:34)
[2019-04-12] MEDS: HYDROmorphone 2 MG/ML VIAL IV PRN (23:21)
[2019-04-12] MEDS: LORazepam 2 MG/ML VIAL IV PRN (23:22)
[2019-04-13] MEDS: 0.9 % SODIUM CHLORIDE 1,000 ML IV SCH ×5 (02:19→23:03)
[2019-04-13] MEDS: POLYETHYLENE GLYCOL 3350 17 GM PACKET PO SCH ×2 (03:50→09:57)
[2019-04-13] MEDS: METOCLOPRAMIDE 10 MG/2 ML VIAL IV SCH ×3 (05:27→17:25)
[2019-04-13 06:06] LABS: Basophils # (Auto) 0 K/mcL (0.0-0.3); Basophils % (Auto) 0 % (0.0-2.0); Eosinophils # (Auto) 0 K/mcL (0.0-0.7); Eosinophils % (Auto) 0.1 % (0.0-7.0); Granulocytes % (Auto) 90.8 % (38.0-78.0); Hematocrit 37.9 % (41.0-55.0); Hemoglobin 12.6 g/dL (13.5-16.5); Lymphocytes # (Auto) 0.3 K/mcL (1.5-4.8); Lymphocytes % (Auto) 2.4 % (15.5-49.0); Mean Cell Volume 95.1 fL (80.0-100.0); Mean Corpuscular HGB Conc 33.4 g/dL (31.0-36.0); Monocytes # (Auto) 0.8 K/mcL (0.1-0.9); Monocytes % (Auto) 6.7 % (1.0-12.0); Platelet Count 158 K/mcL (140-440); RBC 3.98 M/mcL (4.50-5.90); Red Cell Distribution Width 13.8 % (11.5-14.5); WBC 12.1 K/mcL (4.5-11.0)
[2019-04-13 06:24] LABS: ALT/SGPT 8 U/l (0-40); AST/SGOT 11 U/l (0-37); Albumin 2.5 gm/dL (3.2-5.2); Albumin/Globulin Ratio 0.8 (1.0-2.3); Alkaline Phosphatase 83 U/L (39-117); Bilirubin,Direct < 0.2 mg/dL (0.0-0.3); Bilirubin,Total 0.5 mg/dL (0.0-1.0); Blood Urea Nitrogen 17 mg/dl (8-23); Carbon Dioxide 18 mmol/L (22-30); Chloride 112 mmol/L (96-108); Globulin 3.1 gm/dL (2.2-3.7); Glomerular Filtration Rate 47; Glucose 133 mg/dL (70-105); Lactate Dehydrogenase 246 U/L (94-250); Phosphorous 2.2 mg/dL (2.7-4.5); Triglycerides 83 mg/dl (<150); Uric Acid 3.9 mg/dL (2.5-8.0)
[2019-04-13] MEDS ORDERED: POTASSIUM PHOSPHATE 40 MEQ in DEXTROSE 5% IN WATER 500 ML IV STA (06:40)
[2019-04-13] MEDS: POTASSIUM PHOSPHATE 40 MEQ in DEXTROSE 5% IN WATER 500 ML IV SCH ×2 (08:30→12:40)
[2019-04-13] MEDS: cefTRIAXone 1 GM VIAL IV SCH (08:34)
[2019-04-13] MEDS: LEVOTHYROXINE 75 MCG TABLET PO SCH (08:35)
--- NOTE | 2019-04-13 09:59 | XRay Report ---
CLINICAL INFORMATION: Ileus COMPARISON: 04/12/2019 FINDINGS: Moderate dilatation of small bowel loops in the upper abdomen and transverse colon with decompression in the descending and rectosigmoid segments. No free air, soft tissue mass or organomegaly. IMPRESSION: Probable worsening atypical ileus. Colonic obstruction at the splenic flexure level is possible, but less likely. At this point, consider repeat abdomen and pelvic CT with both oral and rectal contrast to optimally evaluate the bowel for any obstructive lesions. If patient cannot tolerate IV contrast, this can be withheld Interpreted and Authenticated by: Yony Shields 04/13/19
--- NOTE | 2019-04-13 13:04 | General Surgery Progress Note ---
Subjective Patient reports: feels better, pain is less, tolerating liquids well, flatus, bowel movement, diarrhea, afebrile Narrative: Note initiated : 04/13/19 at 1:02 pm Service Date, if different from initiated Date: [] Patient: Jose Mckeon 83 y/o M admitted on 04/09/19 for Right side abdominal pain. Chief Complaint: [patient states that he is feeling better. However, he still has significant abdominal distention. He denies nausea and he denies abdominal pain. He has had multiple bowel movements, passing gas. His abdominal x-rays are worse with worsening dilation of colon and small bowel as compared to yesterday. Discussed with patient the need for contrast study of the colon. He agrees to proceed.] Objective Temp Pulse Resp BP Pulse Ox 97.9 F 97 H 18 168/91 93 04/13/19 08:00 04/13/19 08:00 04/13/19 08:00 04/13/19 08:00 04/13/19 08:00 - Additional Data Intake & Output - Last 24 hours: Intake & Output 04/11/19 04/12/19 04/13/19 04/14/19 05:59 05:59 05:59 05:59 Intake Total 2180 3660 4400 1071 Output Total 675 500 600 1 Balance 1505 3160 3800 1070 Weight 142 lb 8 oz 142 lb 9.6 oz 146 lb 9.6 oz - General physical appearance well developed, well nourished, no distress - Eyes PERRL, normal ocular movement - ENT normal pinna, normal nares, normal mucosa, no hearing loss, no congestion - Neck no masses, no bruits, trachea midline, no lymphadenopathy, no venous distension - Respiratory normal expansion, normal respiratory effort, clear to auscultation - Cardiovascular Cardiovascular exam: Present: normal rate and rhythm, RRR. Absent: JVD, tachycardia - Abdomen distended (moderate distention with tympanitic to percussion; hyperactive bowel sounds; no masses or tenderness noted) - Integumentary no rash, no growths, no abnormal pigmentation - Neurologic normal coordination, normal sensation - Musculoskeletal normal gait, normal posture - Psychiatric oriented to time, oriented to person, oriented to place, speech is normal, memory intact - Labs 04/13/19 04:50 04/13/19 04:50 Diabetes panel 04/13/19 Range/Units 04:50 Sodium 141 (133-145) mmol/L Potassium 2.9 L* (3.3-5.1) mmol/L Chloride 112 H (96-108) mmol/L Carbon Dioxide 18 L (22-30) mmol/L BUN 17 (8-23) mg/dl Creatinine 1.4 H (0.7-1.2) mg/dl Glucose 133 H (70-105) mg/dL Calcium 9.0 (8.6-10.4) mg/dl AST 11 (0-37) U/l ALT 8 (0-40) U/l Alkaline Phosphatase 83 (39-117) U/L Total Protein 5.6 L (5.9-8.4) gm/dL Albumin 2.5 L (3.2-5.2) gm/dL Triglycerides 83 (<150) mg/dl Calcium panel 04/13/19 Range/Units 04:50 Calcium 9.0 (8.6-10.4) mg/dl Phosphorus 2.2 L (2.7-4.5) mg/dL Albumin 2.5 L (3.2-5.2) gm/dL Pituitary panel 04/13/19 Range/Units 04:50 Sodium 141 (133-145) mmol/L Potassium 2.9 L* (3.3-5.1) mmol/L Chloride 112 H (96-108) mmol/L Carbon Dioxide 18 L (22-30) mmol/L BUN 17 (8-23) mg/dl Creatinine 1.4 H (0.7-1.2) mg/dl Glucose 133 H (70-105) mg/dL Calcium 9.0 (8.6-10.4) mg/dl Adrenal panel 04/13/19 Range/Units 04:50 Sodium 141 (133-145) mmol/L Potassium 2.9 L* (3.3-5.1) mmol/L Chloride 112 H (96-108) mmol/L Carbon Dioxide 18 L (22-30) mmol/L BUN 17 (8-23) mg/dl Creatinine 1.4 H (0.7-1.2) mg/dl Glucose 133 H (70-105) mg/dL Calcium 9.0 (8.6-10.4) mg/dl Total Bilirubin 0.5 (0.0-1.0) mg/dL AST 11 (0-37) U/l ALT 8 (0-40) U/l Alkaline Phosphatase 83 (39-117) U/L Total Protein 5.6 L (5.9-8.4) gm/dL Albumin 2.5 L (3.2-5.2) gm/dL Assessment and Plan (1) Pseudoobstruction of colon Status: Acute Assessment and plan: Patient will have single contrast barium enema done today. Potential for follow-up will be based on the results of this test. His potassium and phosphorus has been replaced. Current Visit: Yes (2) UTI (urinary tract infection) Status: Acute Assessment and plan: Continue antibiotics. Repeat urinalysis is improved Current Visit: Yes - Time Spent With Patient Total time spent is greater than 50% in coordination of care (as documented) at patient's floor/unit and/or counseling patient:
--- NOTE | 2019-04-13 14:43 | XRay Report ---
CLINICAL INFORMATION: to evaluate descending and sigmoid colon;r/o obstr COMPARISON: Plain films 04/13/2019 TECHNIQUE: Following supervisor mechanic boilermaking film, 1-1 dilute Gastrografin was infused through an indwelling rectal catheter and refluxed throughout the colon to the cecum. Appendix is opacified. Multiple spot overhead and postevacuation films were obtained. Total fluoroscopy time four minutes FINDINGS: Scattered sigmoid diverticuli appreciated. There is modest amount of stool. No constricting masses, gross evidence of polyps, or obstruction. The colon is moderately dilated. Cecum is mobile - positioned in the left lower quadrant. Appendix is normal. No small bowel reflux. IMPRESSION: No evidence of colonic obstruction. 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
[2019-04-13] MEDS: PYRIDOSTIGMINE BROMIDE 5 MG/ML IM SCH (17:51)
[2019-04-13] MEDS: MAGNESIUM OXIDE 400 MG TABLET PO SCH (20:24)
[2019-04-13] MEDS: amLODIPine 10 MG TABLET PO SCH (20:24)
[2019-04-13] MEDS: LORazepam 2 MG/ML VIAL IV PRN (23:04)
[2019-04-14] MEDS: PYRIDOSTIGMINE BROMIDE 5 MG/ML IM SCH ×3 (00:51→15:22)
[2019-04-14] MEDS: METOCLOPRAMIDE 10 MG/2 ML VIAL IV SCH ×3 (00:51→15:21)
[2019-04-14] MEDS: 0.9 % SODIUM CHLORIDE 1,000 ML IV SCH ×2 (06:38→16:14)
[2019-04-14] MEDS: LEVOTHYROXINE 75 MCG TABLET PO SCH (07:52)
--- NOTE | 2019-04-14 08:41 | XRay Report ---
HISTORY: Follow-up small bowel obstruction FINDINGS: There is a large amount gas in both large and small intestine. There are air-fluid levels in both. There is a loop of dilated hepatic flexure located between the liver and right diaphragm. This is causing moderate elevation of the right diaphragm. There is less gas in the bowel today than there was on 04/13/19. The rectal contrast which was administered on 04/13/19 has cleared and there is no residual contrast within the abdomen or pelvis. No free intra-abdominal air is present. There is no apparent soft tissue mass. Along the right side of the L3 vertebra there is an oval-shaped 7 x 8 mm calcification. This simulates a ureteral stone. However, on the prior CT done on 04/09/19 is was found to represent a bone island in the right transverse process of L3. No kidney or right-sided ureteral stone was seen on a prior CT done on 04/09/19. There was a stone seen within the bladder on the prior study which is still present. There are multiple stones in the distal left ureter. These are unchanged. IMPRESSION: Mildly dilated large and small intestine. 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
[2019-04-14] MEDS: cefTRIAXone 1 GM VIAL IV SCH (09:48)
--- NOTE | 2019-04-14 11:42 | Discharge Summary ---
Providers - Providers Patient information: Note initiated : 04/14/19 at 11:42 am Service Date, if different from initiated Date: [] Patient: Jose Mckeon 83 y/o M admitted on 04/09/19 for Right side abdominal pain. Chief Complaint: [] Date of admission: 04/09/19 Discharge date: 04/14/19 Attending physician: Juana Medeiros Hospitalization Hospital Course: 83-year-old male admitted for evaluation of abdominal pain. He developed abdominal pain in his mid abdomen that became progressively worse. He was seen in the emergency room. He gives a history of having constant diarrhea for many years and states that he has bowel movements once or twice daily. He had a normal colonoscopy in 2009. He had small bowel perforation in 2010 and required small bowel resection. The reason for that is not. Patient was noted to have severe dilation of the colon and small bowel. It appeared that the colon was dilated down to the rectum. Follow-up x-rays were done and did not show clearing slowly small bowel follow-through was done which showed slow transit through the small bowel and colon but the contrast reached the rectum without any evidence of obstruction. Follow-up . There are minimal was done which showed a very dilated redundant floppy colon without evidence of obstruction. Radiographic findings were compatible with chronic intestinal pseudoobstruction. Patient was started on pyridostigmine and has had a positive response with multiple bowel movements with decompression of his bowel. He is stable and will be discharged on Mestinon with follow-up in the office in 1 month. Discharge diagnosis: chronic intestinal pseudoobstruction Secondary discharge diagnosis: History of coronary artery disease. Urinary tract infection Reason for admission: chronic abdominal pain and dilated bowel Procedures: None Pertinent studies/significant findings: CT of abdomen and pelvis with contrast Small bowel follow-through. Single contrast barium enema Complications: None Exam Temp Pulse Resp BP Pulse Ox 98.6 F 80 20 176/92 94 04/14/19 08:00 04/14/19 08:00 04/14/19 08:00 04/14/19 08:00 04/14/19 08:00 - General physical appearance well developed, well nourished, no distress, no pain, cachectic, chronically ill - Eyes PERRL, normal ocular movement - ENT normal pinna, normal nares, normal mucosa, no hearing loss, no congestion - Head Head exam IM: Present: atraumatic, normocephalic - Neck no masses, no bruits, trachea midline, no lymphadenopathy, no venous distension - Cardiovascular Cardiovascular exam IM: Present: normal rate and rhythm - Respiratory normal expansion, normal respiratory effort, clear to percussion, clear to auscultation - Abdomen Abdomen: Present: soft, non tender, bowel sounds Hernia: Present: none - Genitourinary Present: normal penis with no external lesions - Integumentary Present: no rash, no growths, no abnormal pigmentation - Neurologic Present: normal coordination, normal sensation - Musculoskeletal Present: normal gait, normal posture - Psychiatric Present: oriented to time, oriented to person, oriented to place, speech is normal, memory intact Discharge Plan - Patient/Caregiver Discharge Instructions Activity: increase activity as tolerated Diet: Regular Diet Prescriptions: Pyridostigmine [Mestinon] 60 mg PO TID #90 tab Transmission Status: Pending to [facility] #[id number] - Follow up Plan Follow up with: Neal Diaz DO [Primary Care Provider] - Disposition: Home, Self-Care Prognosis: Good Rehab Potential: Good I certify that the patient requires SNF services.: No Overall status at discharge: patient is back to baseline Pending Studies Resuscitation Status Full Code Diet Full Liquid Diet Start SunApr 13 1342 Amlodipine Besylate (Norvasc) 10 mg PO QHS [facility] Last Admin: 04/13/19 20:24 Dose: 10 mg Documented by: Admin: 04/12/19 20:34 Dose: 10 mg Documented by: Admin: 04/11/19 21:21 Dose: 10 mg Documented by: RAFA Ceftriaxone Sodium (Rocephin) 1 gm IV DAILY TELMA; Protocol Last Admin: 04/14/19 09:48 Dose: 1 gm Documented by: ANURADHA Cosigned by: KVNG Admin: 04/13/19 08:34 Dose: 1 gm Documented by: Admin: 04/12/19 08:52 Dose: 1 gm Documented by: Admin: 04/11/19 08:44 Dose: 1 gm Documented by: Admin: 04/10/19 18:16 Dose: 1 gm Documented by: MATT Hydromorphone HCl (Dilaudid) 0.5 mg IV Q2HP PRN; Protocol PRN Reason: Per Pain Protocol Last Admin: 04/12/19 23:21 Dose: 0.5 mg Documented by: Admin: 04/11/19 21:28 Dose: 0.5 mg Documented by: Admin: 04/11/19 17:10 Dose: 0.5 mg Documented by: Admin: 04/11/19 12:49 Dose: 0.5 mg Documented by: Admin: 04/11/19 07:21 Dose: 0.5 mg Documented by: Admin: 04/11/19 05:35 Dose: 0.5 mg Documented by: Admin: 04/10/19 23:48 Dose: 0.5 mg Documented by: Admin: 04/10/19 19:21 Dose: 0.5 mg Documented by: YURIY Sodium Chloride (Sodium Chloride 0.9%) 1,000 mls @ 100 mls/hr IV .Q10H [facility] Last Admin: 04/14/19 06:38 Dose: Not Given Documented by: Admin: 04/13/19 23:03 Dose: 100 mls/hr Documented by: Infusion: 04/13/19 22:55 Dose: 0 mls/hr Documented by: Infusion: 04/13/19 19:26 Dose: 100 mls/hr Documented by: Admin: 04/13/19 18:23 Dose: Not Given Documented by: Admin: 04/13/19 12:26 Dose: Not Given Documented by: Infusion: 04/13/19 08:30 Dose: 0 mls/hr Documented by: [email or web address] Admin: 04/13/19 02:53 Dose: 100 mls/hr Documented by: Infusion: 04/13/19 02:36 Dose: 100 mls/hr Documented by: Admin: 04/13/19 02:19 Dose: Not Given Documented by: Admin: 04/12/19 16:36 Dose: 100 mls/hr Documented by: Infusion: 04/12/19 15:46 Dose: 100 mls/hr Documented by: Admin: 04/12/19 10:59 Dose: Not Given Documented by: Admin: 04/12/19 05:46 Dose: 100 mls/hr Documented by: Infusion: 04/12/19 05:46 Dose: 100 mls/hr Documented by: Admin: 04/12/19 01:40 Dose: Not Given Documented by: Admin: 04/11/19 19:56 Dose: 100 mls/hr Documented by: Infusion: 04/11/19 18:44 Dose: 100 mls/hr Documented by: Admin: 04/11/19 14:06 Dose: Not Given Documented by: Admin: 04/11/19 08:44 Dose: 100 mls/hr Documented by: Infusion: 04/11/19 08:41 Dose: 100 mls/hr Documented by: Admin: 04/11/19 06:53 Dose: Not Given Documented by: Admin: 04/10/19 22:41 Dose: 100 mls/hr Documented by: Infusion: 04/10/19 21:28 Dose: 100 mls/hr Documented by: Admin: 04/10/19 11:28 Dose: 100 mls/hr Documented by: Infusion: 04/10/19 10:36 Dose: 100 mls/hr Documented by: Admin: 04/10/19 00:36 Dose: 100 mls/hr Documented by: TYLER [facility]) [facility] Last Admin: 04/14/19 07:52 Dose: 137 mcg Documented by: Admin: 04/13/19 08:35 Dose: 137 mcg Documented by: SCOOTER Lorazepam (Ativan) 1 mg IV HSP PRN PRN Reason: Sleep Last Admin: 04/13/19 23:04 Dose: 1 mg Documented by: Admin: 04/12/19 23:22 Dose: 1 mg Documented by: Admin: 04/11/19 23:33 Dose: 1 mg Documented by: Admin: 04/10/19 23:49 Dose: 1 mg Documented by: YURIY Magnesium Oxide (Magnesium Oxide) 400 mg PO HS [facility] Last Admin: 04/13/19 20:24 Dose: 400 mg Documented by: Admin: 04/12/19 20:34 Dose: 400 mg Documented by: FABRICIO Metoclopramide HCl (Reglan) 10 mg IV Q6 [facility] Last Admin: 04/14/19 06:17 Dose: 10 mg Documented by: Admin: 04/14/19 00:51 Dose: 10 mg Documented by: Admin: 04/13/19 17:25 Dose: 10 mg Documented by: Admin: 04/13/19 12:34 Dose: 10 mg Documented by: Admin: 04/13/19 05:27 Dose: 10 mg Documented by: Admin: 04/12/19 23:20 Dose: 10 mg Documented by: Admin: 04/12/19 17:05 Dose: 10 mg Documented by: Admin: 04/12/19 11:36 Dose: 10 mg Documented by: Admin: 04/12/19 05:47 Dose: 10 mg Documented by: Admin: 04/11/19 23:33 Dose: 10 mg Documented by: Admin: 04/11/19 17:11 Dose: 10 mg Documented by: Admin: 04/11/19 12:02 Dose: 10 mg Documented by: Admin: 04/11/19 06:05 Dose: 10 mg Documented by: Admin: 04/10/19 23:49 Dose: 10 mg Documented by: Admin: 04/10/19 18:16 Dose: 10 mg Documented by: MATT Oxycodone HCl (Roxicodone) 10 mg PO Q4HP PRN; Protocol PRN Reason: Per Pain Protocol Last Admin: 04/13/19 23:04 Dose: 10 mg Documented by: BRITTON Irbesartan 300 Mg (Tab) 1 dose PO DAILY [facility] Last Admin: 04/14/19 09:46 Dose: 1 dose Documented by: ANURADHA Cosigned by: KVNG Admin: 04/13/19 08:35 Dose: 1 dose Documented by: Admin: 04/12/19 16:09 Dose: Not Given Documented by: CARLA Pyridostigmine [place] (Regonol) 10 mg IM Q6 [facility] Last Admin: 04/14/19 06:18 Dose: 10 mg Documented by: Admin: 04/14/19 00:51 Dose: 10 mg Documented by: Admin: 04/13/19 17:51 Dose: 10 mg Documented by: SCOOTER Shift Summary 04/14/19 04:26 Shift Summary by Kymberly Reeves Patient alert and oriented x4. Slept off and on this shift. Medicated for pain with Roxicodone tab x1 and Ativan IV x1 for sleep. Up ad fabian in the room. IVF NS@100 infusing well on RFA. K 2.9 yesterday. / Kphos rider completed. On Rogenol IM Q6H. Had moderate loose BM last night x3. SBP 150-170'smmHg, RI 90'sbpm. Asymptomatic. For Abdominal X-ray this AM. Initialized on 04/14/19 04:26 - END OF NOTE
== END 2019-04-14 14:00 | disposition home or self-care (01) | DRG 392 ==
LOC: ED 20:16 → MEDSUR 23:52
PROVIDERS: ADMIT Family Medicine Adult Medicine; ATTEND Family Medicine Adult Medicine